=== PATIENT | male | born 1990 | race Caucasian/White ===

== ENCOUNTER 2020-08-24 19:57 | Emergency (ER) | payer SELFPAY ==
[~2020-08-24] VITALS: Ht 182.9 cm; Wt 97.7 kg
[2020-08-24 20:11] VITALS: BP 146/89
--- NOTE | 2020-08-24 21:53 | NUR ---
ALL RESULTS ARE BACK AT THIS TIME. CHART UP FOR RECHECK.
== END 2020-08-24 22:06 | disposition home or self-care (01) ==
LOC: ED 20:27
DX: S43.421A Sprain of right rotator cuff capsule, initial encounter (principal); X58.XXXA Exposure to other specified factors, initial encounter; Y93.89 Activity, other specified; Y92.410 Unspecified street and highway as the place of occurrence of the external cause; Y99.8 Other external cause status
CPT/HCPCS: 99283